=== PATIENT | female | born 1995 | race Caucasian/White ===

== ENCOUNTER 2024-08-15 20:46 | Emergency (ER) | payer MEDICAID, SELFPAY ==
[2024-08-15 20:55] VITALS: BP 136/74; PULSE 91; RESP 18; TEMP 36.7; O2SAT 99; BMI 31.0
--- NOTE | 2024-08-15 21:03 | ED.GENADULT ---
HPI - General Adult General Chief complaint: Vaginal Bleeding Stated complaint: 12 weeks bleeding Time Seen by Provider: 08/15/24 21:02 History of Present Illness HPI narrative: CC: Vaginal Bleeding pt. with vaginal bleeding that started about 1800. went through 2 pads since 1800. denies dizziness, n/v, diarrhea. 29-year-old woman presenting to the emergency department concern of vaginal bleeding. Currently 12 weeks . Bleeding began this evening. ?went through 2 pads? over the last 3 hours. When I sit down it gushes out she says. No fever. Initially had a quad but I would 8 weeks had 2 fetus loss. Is being managed by midwifery group from out [facility]. Is not feeling lightheaded. No shortness of breath. . First was twins. This is currently an unassisted Related Data Home Medications ?Medication ?Instructions ?Recorded ?Confirmed No Known Home Medications 08/15/24 08/15/24 Allergies Allergy/AdvReac Type Severity Reaction Status Date / Time No Known Drug Allergies Allergy Verified 08/15/24 21:00 Review of Systems Status of ROS: Reports: 6 or more systems reviewed and unremarkable except as noted in History and below [facility] Medical History No significant past medical history Surgical History No significant past surgical history Social History Smoking Status: Never smoker Second hand tobacco smoke exposure: No How often do you have a drink containing alcohol: never AUDIT-C Alcohol total score: 0 Non-prescribed substance use: denies use Exam Narrative: Exam Narrative: Pleasant. Good energy. Initially evaluated when OB nursing staff is assessing . Return to discuss further. Breathing easily. Heart is in mildly elevated rate, regular rhythm. Abdomen is soft. Nontender uterus infraumbilical. Genitourinary exam was not done Const: Vital Signs, click to edit/add: Vital Signs - 24 hr 08/15/24 20:55 Temperature 98.0 F Pulse Rate [Right Pulse Oximeter] 91 Respiratory Rate 18 Blood Pressure [Ri ght Upper Arm] 136/74 Pulse Oximetry 99 Oxygen Delivery Me thod Room Air Documenting provider has reviewed patient's vital signs: yes Course Vital Signs Vital signs: Initial Vital Signs Temperature 98.0 F 08/15/24 20:55 Temperature Source Temporal Artery Scan 08/15/24 20:55 Pulse Rate 91 08/15/24 20:55 Respiratory Rate 18 08/15/24 20:55 Blood Pressure 136/74 08/15/24 20:55 Blood Pressure Mean 94 08/15/24 20:55 Blood Pressure Position Sitting 08/15/24 20:55 Pulse Oximetry 99 08/15/24 20:55 Oxygen Delivery Method Room Air 08/15/24 20:55 Vital Signs Temperature 98.0 F 08/15/24 20:55 Pulse Rate 91 08/15/24 20:55 Respiratory Rate 18 08/15/24 20:55 Blood Pressure 136/74 08/15/24 20:55 Pulse Oximetry 99 08/15/24 20:55 Oxygen Delivery Method Room Air 08/15/24 20:55 Temperature 98.0 F 08/16/24 00:28 Pulse Rate 85 08/16/24 00:28 Respiratory Rate 18 08/16/24 00:28 Blood Pressure 121/70 08/16/24 00:28 Pulse Oximetry 99 08/16/24 00:27 Oxygen Delivery Method Room Air 08/16/24 00:27 Medical Decision Making MDM Narrative Medical decision making narrative: Ultrasound is ordered relatively promptly. She had not felt quickening yet. Dopplers detect to intrauterine heartbeats of appropriate rate. Need to evaluate for source of painless bleeding in . Likely perigestational but will try to characterize further. Hemoglobin and blood type. Discuss ultrasound results with telecom network manager. I do also place a call to OB given size of subchorionic hemorrhages that are noted. Close follow-up recommended pending acceptable hemoglobin. Blood type O positive so will not need isoimmunization prevention/prophylaxis. Vitals stable. Appears safe for discharge. See radiology over-read below TECHNIQUE: Ultrasound OB pelvis transvaginal. Real time clifford scale imaging of the pelvis was performed. COMPARISON: None FINDINGS: Twin intrauterine is present with a thickened inter twin membrane, consistent with antipsychotic diamniotic twin. Fetus A: The embryo demonstrates a regular cardiac rate measuring 155 beats per minute. The embryo`s crown rump length measurement of 61 mm corresponds to a gestational age of 12 weeks, 4 days. There are no gross abnormalities noted within the embryo at this early state of development. There is a normal appearing yolk sac. Fetus B: The embryo demonstrates a regular cardiac rate measuring 169 beats per minute. The embryo`s crown rump length measurement of 61 mm corresponds to a gestational age of 12 weeks, 4 days. There are no gross abnormalities noted within the embryo at this early state of development. There is a normal appearing yolk sac. Placenta: The placenta for fetus A is located anteriorly and posteriorly for twin B. There are 2 subchorionic hemorrhage is present with the left measuring 10.5 x 6 cm and the right measuring 5 x 1.6 cm. Pelvis: The ovaries and cervix were not visualized. No significant ascites noted. IMPRESSION: 1. Twin present with both fetuses having estimated gestational age of 12 weeks, 4 days. 2. There are 2 subchorionic hemorrhage is present with the left measuring 10.5 x 6 cm and the right measuring 5 x 1.6 cm. Given the large size of the subchorionic hemorrhages, close interval follow-up is recommended. Se patient discharge plan for further discussion I am pleased to confirm with you that you are blood type O positive and so will not need RhoGAM or similar prophylaxis. Please take the copy of your ultrasound images on this disc to follow-up with your care providers for recommended ultrasound and evaluation within a week. Be seen sooner for marked increase in bleeding such that soaking through 1 thick pad an hour for 2 consecutive hours, experiencing lightheadedness or shortness of breath, marked increase in abdominal pain. Lab Data Labs: Lab Results 08/15/24 08/15/24 Range/Units 22:06 22:35 Hgb 12.4 (12.0-16.0) gm/dL Blood Type O Positive Antibody Screen NEGATIVE Discharge Plan Discharge Clinical Impression: Bleeding in early , Subchorionic hemorrhage Patient Disposition: Home w/ Parent or Adult Condition: Stable Additional Instructions: I am pleased to confirm with you that you are blood type O positive and so will not need RhoGAM or similar prophylaxis. Please take the copy of your ultrasound images on this disc to follow-up with your care providers for recommended ultrasound and evaluation within a week. Be seen sooner for marked increase in bleeding such that soaking through 1 thick pad an hour for 2 consecutive hours, experiencing lightheadedness or shortness of breath, marked increase in abdominal pain. Prescriptions: No Action No Known Home Medications Follow Up/Referrals: Provider,Not a Local [Primary Care Provider] - Stand Alone Forms: tritrue Info Instructions
--- NOTE | 2024-08-15 21:08 | CRLHL7_ITS ---
For Patients: As a result of the Cures Act, medical imaging exams and procedure reports are released immediately into your electronic medical record. You may view this report before your referring provider. If you have questions, please contact your health care provider. INDICATION: Vaginal bleeding in twin TECHNIQUE: Ultrasound OB pelvis transvaginal. Real time clifford scale imaging of the pelvis was performed. COMPARISON: None FINDINGS: Twin intrauterine is present with a thickened inter twin membrane, consistent with antipsychotic diamniotic twin. Fetus A: The embryo demonstrates a regular cardiac rate measuring 155 beats per minute. The embryo`s crown rump length measurement of 61 mm corresponds to a gestational age of 12 weeks, 4 days. There are no gross abnormalities noted within the embryo at this early state of development. There is a normal appearing yolk sac. Fetus B: The embryo demonstrates a regular cardiac rate measuring 169 beats per minute. The embryo`s crown rump length measurement of 61 mm corresponds to a gestational age of 12 weeks, 4 days. There are no gross abnormalities noted within the embryo at this early state of development. There is a normal appearing yolk sac. Placenta: The placenta for fetus A is located anteriorly and posteriorly for twin B. There are 2 subchorionic hemorrhage is present with the left measuring 10.5 x 6 cm and the right measuring 5 x 1.6 cm. Pelvis: The ovaries and cervix were not visualized. No significant ascites noted. IMPRESSION: 1. Twin present with both fetuses having estimated gestational age of 12 weeks, 4 days. 2. There are 2 subchorionic hemorrhage is present with the left measuring 10.5 x 6 cm and the right measuring 5 x 1.6 cm. Given the large size of the subchorionic hemorrhages, close interval follow-up is recommended. Dictated by Mor Chaudhary MD @ 08/15/2024 10:20:49 PM Dictated by: Mor Chaudhary MD @ 08/15/2024 22:21:03 (Electronically Signed)
[2024-08-15 22:32] LABS: Hemoglobin* 12.4 gm/dL (12.0-16.0)
[2024-08-16 00:27] VITALS: BP 121/70; PULSE 85; RESP 18; TEMP 36.7; O2SAT 99
[2024-08-16 00:28] VITALS: BP 121/70; PULSE 85; RESP 18; TEMP 36.7
== END 2024-08-16 00:28 | disposition home or self-care (01) ==
PROVIDERS: Emergency Provider Family Medicine
DX: O20.8 Other hemorrhage in early pregnancy (principal); Z3A.12 12 weeks gestation of pregnancy
CPT/HCPCS: 36415; 76801; 76802; 85018; 86850; 86900; 86901; 99283; 99284

== ENCOUNTER 2025-02-09 13:30 | Outpatient (RCR) | payer MEDICAID, SELFPAY ==
--- NOTE | 2025-02-04 10:47 | ONC.NURNOTE ---
Diagnosis: O99.013 - anemia complicating , third trimester
[2025-02-05 09:02] VITALS: BP 118/74; PULSE 96; TEMP 36.3; O2SAT 98
[2025-02-05] MEDS: IRON SUCROSE COMPLEX IVPB (09:56)
[2025-02-05] MEDS: SODIUM CHLORIDE 0.9% IVPB (09:56)
[2025-02-05 10:20] VITALS: BP 117/73; PULSE 98; RESP 16; TEMP 36.4; O2SAT 98
[2025-02-05 11:02] VITALS: BP 116/67; PULSE 96; TEMP 36.6; O2SAT 98
[2025-02-06 13:37] VITALS: BP 115/77; PULSE 96; TEMP 36.3; O2SAT 98
[2025-02-06 14:25] VITALS: BP 108/69; PULSE 94; RESP 16; TEMP 36.7; O2SAT 97
[2025-02-06 14:52] VITALS: BP 107/72; PULSE 93; RESP 16; TEMP 36.1; O2SAT 96
[2025-02-09 13:32] VITALS: BP 109/72; PULSE 98; RESP 16; TEMP 36.3; O2SAT 98
[2025-02-09] MEDS: SODIUM CHLORIDE 0.9% IVPB (14:11)
[2025-02-09] MEDS: IRON SUCROSE COMPLEX IVPB (14:11)
[2025-02-09 14:20] VITALS: BP 121/77; PULSE 99; RESP 16; TEMP 36.3; O2SAT 98
[2025-02-09] MEDS: SODIUM CHLORIDE 0.9 % (FLUSH) 10 ML SYRINGE IVF (15:43)
== END 2025-08-04 23:59 | disposition home or self-care (01) ==
LOC: CCIC 13:30
PROVIDERS: Visit Provider Clinical Nurse Specialist
DX: O99.013 Anemia complicating pregnancy, third trimester (principal)
CPT/HCPCS: 96365; J1756; J7050